=== PATIENT | female | born 1990 | race Two or more races ===

== ENCOUNTER 2018-05-30 15:36 | Inpatient (IN) | payer OTHER ==
[~2018-05-30] VITALS: Ht 154.9 cm; Wt 83.7 kg
--- NOTE | 2018-05-30 17:03 | NUR ---
C/O ABD PAIN, N/V x 5 DAYS. STATES PAIN IS SIMILAR TO WHEN SHE HAD GALLSTONES X 6 MOS AGO. PT IS AOX4, AMB, VSS, RR EVEN AND UNLABORED ON RA. SKIN INTACT, NO ACUTE DISTRESS NOTED. FRIEND AT BEDSIDE. READY FOR EVAL.
[2018-05-30 17:28] LABS: BASOPHILS # (AUTO) 0.1 /CMM (0.0-0.2); BASOPHILS % (AUTO) 0.6 % (0.0-2.0); EOSINOPHILS % (AUTO) 1.1 % (0.0-6.0); HEMATOCRIT 40 % (33-45); HEMOGLOBIN 13.8 g/dL (11.5-14.8); LYMPHOCYTES # (AUTO) 1.5 /CMM (0.8-4.8); LYMPHOCYTES % (AUTO) 15.6 % (20.0-44.0); MEAN CORPUSCULAR HGB CONC 35 g/dl (31.0-36.0); MEAN CORPUSCULAR VOLUME 88 fL (82-100); MONOCYTES # (AUTO) 0.5 /CMM (0.1-1.30); MONOCYTES % (AUTO) 5.6 % (2.0-12.0); NEUTROPHILS # (AUTO) 7.4 /CMM (1.8-8.9); NEUTROPHILS % (AUTO) 77.1 % (43.0-81.0); PLATELET COUNT (AUTO) 203 /CMM (150-450); RED BLOOD CELL COUNT(AUTO) 4.53 MIL/uL (4.0-5.2); WHITE BLOOD COUNT (AUTO) 9.6 K/uL (4.3-11.0)
[2018-05-30] MEDS ORDERED: IV NS 0.9% 1,000 ML BAG IV ONE (17:30)
[2018-05-30] MEDS ORDERED: ONDANSETRON HCL/PF 4 MG/2 ML VIAL IVP ONE (17:30)
[2018-05-30] MEDS ORDERED: MORPHINE SULFATE INJ 2 MG/ML DISP.SYRIN IV ONE (17:30)
[2018-05-30 17:32] LABS: APPEARANCE,URINE Clear (CLEAR); BILIRUBIN,URINE SMALL (NEGATIVE); BLOOD, URINE Negative Ery/uL (NEGATIVE); COLOR,URINE Yellow (YELLOW); KETONES,URINE Trace (NEGATIVE); LEUKOCYTE ESTERASE ,URINE Negative (NEGATIVE); NITRITE, URINE Negative (NEGATIVE); PH,URINE 5.5 (5.0-8.0); PROTEIN,URINE Negative (NEGATIVE); UGLUCOSE Negative (NEGATIVE); UROBILINOGEN,URINE 0.2 EU/dL (0.2)
[2018-05-30 17:33] LABS: CALCIUM, SERUM 9.1 mg/dL (8.5-10.1); CREATININE 0.8 mg/dL (0.6-1.3); POTASSIUM 3.8 mmol/L (3.5-5.1)
[2018-05-30 17:39] LABS: ALBUMIN 4.2 g/dL (3.4-5.0); BILIRUBIN,DIRECT 0.4 mg/dL (0.0-0.2); TOTAL PROTEIN, SERUM 7.3 g/dL (6.4-8.2)
[2018-05-30] MEDS ORDERED: MORPHINE SULFATE INJ 4 MG/ML DISP.SYRIN ONE (17:43)
[2018-05-30] MEDS ORDERED: ONDANSETRON HCL/PF 4 MG/2 ML VIAL ONE (17:43)
[2018-05-30 17:58] LABS: BACTERIA,URINE Moderate /HPF (None Seen); MUCUS,URINE Many /LPF (None Seen); RBC,URINE 0-2 /HPF (0-2); SQUAMOUS EPITHELIAL CELL,UR Moderate /HPF (None Seen); WBC,URINE 0-2 /HPF (0-3)
--- NOTE | 2018-05-30 18:20 | NUR ---
DR DE WAS CALLED AND IS SPEAKING TO DR. HAY
--- NOTE | 2018-05-30 18:21 | NUR ---
CALLING DR KIMBALL FOR GI CONSULT
--- NOTE | 2018-05-30 18:45 | NUR ---
TEXTED FOR [facility] APPROVAL.
--- NOTE | 2018-05-30 18:46 | NUR ---
[facility] APPROVED
--- NOTE | 2018-05-30 18:52 | NUR ---
FOR MRCP KEEP THE PATIENT NPO. TRACTOR DRIVER WILL BE AT SO AFTER 8.30 PM.SPOKE TO KIM.
--- NOTE | 2018-05-30 19:03 | NUR ---
Patient is resting comfortably in bed with eyes closed. Easily aroused. VSS. FAMILY AT BEDSIDE. WILL CONT TO MONITOR.
--- NOTE | 2018-05-30 20:18 | NUR ---
REPORT GIVEN TO ROBERTA FOR 315-2 MS FOR NELLIE
[2018-05-30] MEDS ORDERED: CEFTRIAXONE 1GM BAG (ER ONLY) 0 ML IV ONE (20:21)
[2018-05-30] MEDS ORDERED: ZOLPIDEM TARTRATE 5 MG TABLET PO PRN (20:30)
[2018-05-30] MEDS ORDERED: MORPHINE SULFATE INJ 2 MG/ML DISP.SYRIN IV PRN (20:30)
[2018-05-30] MEDS ORDERED: MAG HYDROX/AL HYDROX/SIMETH 30 ML UDC PO PRN (20:30)
[2018-05-30] MEDS ORDERED: ACETAMINOPHEN 325 MG TABLET PO PRN (20:30)
[2018-05-30] MEDS ORDERED: HYDROCODONE/APAP 5/325MG 1 EACH TABLET PO PRN (20:30)
[2018-05-30] MEDS ORDERED: MAGNESIUM HYDROXIDE 30 ML UDC PO PRN (20:30)
[2018-05-30] MEDS ORDERED: Z GUARD REMEDY 2 OZ OINT TP PRN (20:30)
--- NOTE | 2018-05-30 20:45 | NUR ---
PT TRANSFERRED TO FLOOR VIA WHEELCHAIR
--- NOTE | 2018-05-30 20:53 | NUR ---
MS/RN RECEIVE PATIENT FROM E.. BY WHEELCHAIR, PATIENT IS AWAKE, ALERT, ORIENTED, COMFORTABLE, NO C/O PAIN AT THIS TIME, NO SIGNS OF DISTRESS NOTED, ADMISSION DONE PER PROTOCOL, PER PATIENT SHE HAS NO SKIN PROBLEM, REFUSED SKIN ASSESSMENT, PLAN OF CARE DISCUSSED, VERBALIZED UNDERSTANDING AND AGREEMENT, WILL MONITOR.
--- NOTE | 2018-05-30 20:56 | NUR ---
MS/RN CALLED RADIOLOGY RE: HIDA SCAN STAT ORDER, SPOKE TO MARIA VICTORIA, PER MARIA VICTORIA IT WILL BE DONE IN THE MORNING.
[2018-05-30] MEDS: IV NS 0.9% 1,000 ML IV PRN (21:25)
--- NOTE | 2018-05-30 23:52 | NUR ---
MS/RN PATIENT STILL AWAKE, CONSENT FOR HIDA SCAN WAS SIGNED.
--- NOTE | 2018-05-31 | NUR ---
MS/RN NPO STATUS STARTED FOR THE HIDA SCAN IN A.M., PATIENT WAS AWARE.
--- NOTE | 2018-05-31 01:08 | NUR ---
MS/RN DR. HUNT WAS AT BEDSIDE TALKED TO THE PATIENT.
--- NOTE | 2018-05-31 06:19 | NUR ---
MS/RN PATIENT IS STILL SLEEPING, APPEAR COMFORTABLE, NO SIGNS OF DISTRESS NOTED, CALL LIGHT IN REACH. ALL NEEDS ATTENDED AT THIS TIME, WILL CONTINUE TO MONITOR.
--- NOTE | 2018-05-31 07:00 | NUR ---
RN OPENING NOTES PT ALERT AND RESTING IN BED. NO APPARENT S/S OF PAIN, DISTRESS OR SOB AT THIS TIME. PT HAS A LEFT AC #20 INTACT AND RUNNING NS @75ML/HR. PT WILL HAVE HIDA SCAN TODAY, CONSENT IN CHART. SAFETY PRECAUTIONS IN PLACE, BED IN LOWEST LOCKED POSITION, X2 SIDE RAILS UP AND CALL LIGHT WITHIN REACH. WILL CONTINUE TO MONITOR.
[2018-05-31 07:48] LABS: BASOPHILS % (AUTO) 0.8 % (0.0-2.0); EOSINOPHILS % (AUTO) 3.3 % (0.0-6.0); HEMATOCRIT 37 % (33-45); HEMOGLOBIN 13.1 g/dL (11.5-14.8); LYMPHOCYTES # (AUTO) 1.8 /CMM (0.8-4.8); LYMPHOCYTES % (AUTO) 35.8 % (20.0-44.0); MEAN CORPUSCULAR HGB CONC 35 g/dl (31.0-36.0); MEAN CORPUSCULAR VOLUME 87 fL (82-100); MONOCYTES # (AUTO) 0.3 /CMM (0.1-1.30); MONOCYTES % (AUTO) 5.8 % (2.0-12.0); NEUTROPHILS # (AUTO) 2.7 /CMM (1.8-8.9); NEUTROPHILS % (AUTO) 54.3 % (43.0-81.0); PLATELET COUNT (AUTO) 186 /CMM (150-450); RED BLOOD CELL COUNT(AUTO) 4.22 MIL/uL (4.0-5.2)
[2018-05-31 07:51] LABS: ALBUMIN 3.5 g/dL (3.4-5.0); BILIRUBIN,DIRECT 0.1 mg/dL (0.0-0.2); BILIRUBIN,TOTAL 0.7 mg/dL (0.2-1.0); CALCIUM, SERUM 8.3 mg/dL (8.5-10.1); CREATININE 0.7 mg/dL (0.6-1.3); MAGNESIUM 1.6 mg/dL (1.8-2.4); PHOSPHORUS 3.1 mg/dL (2.5-4.9); TOTAL PROTEIN, SERUM 6.2 g/dL (6.4-8.2)
[2018-05-31 07:53] LABS: THYROID STIMULATING HORMONE 0.268 uIU/mL (0.358-3.74)
[2018-05-31 08:00] VITALS: BP 101/59
[2018-05-31] MEDS: PANTOPRAZOLE 40 MG VIAL IV SCH (08:54)
--- NOTE | 2018-05-31 08:55 | NUR ---
RN NOTES PT NPO FOR HIDA SCAN.
[2018-05-31] MEDS ORDERED: ONDA4TAB11 PO (09:51)
[2018-05-31] MEDS ORDERED: TRAM50TA2 PO (09:51)
--- NOTE | 2018-05-31 10:00 | NUR ---
RN NOTES PT TAKEN OFF UNIT VIA WHEELCHAIR TO HIDA SCAN AND MRI OF ABD.
[2018-05-31] MEDS: Magnesium 1GM/D5W 100ML PREMIX 100 ML IV SCH ×2 (12:26→13:32)
[2018-05-31] MEDS: IV NS 0.9% 1,000 ML IV PRN (12:26)
--- NOTE | 2018-05-31 12:30 | NUR ---
RN NOTES PT RETURNED TO THE UNIT FAMILY AT BEDSIDE.
[2018-05-31] MEDS: CEFTRIAXONE 1 G in IV D5W 50 ML IV SCH (15:50)
[2018-05-31 16:00] VITALS: BP 107/66
--- NOTE | 2018-05-31 18:38 | NUR ---
RN CLOSING NOTES PT ALERT AND RESTING IN BED. NO APPARENT S/S OF PAIN, DISTRESS OR SOB DURING SHIFT. PT HAS A LEFT AC #20 INTACT AND RUNNING NS @75ML/HR. ALL PATIENT NEEDS MET DURING SHIFT. SAFETY PRECAUTIONS IN PLACE, BED IN LOWEST LOCKED POSITION, X2 SIDE RAILS UP AND CALL LIGHT WITHIN REACH. WILL ENDORSE TO ZIG ZAG SPRING MACHINE OPERATOR NURSE FOR CONTINUITY OF CARE.
--- NOTE | 2018-05-31 19:30 | NUR ---
MS RN INITIAL NOTES Patient in bed, awake. Stable oxygen saturation on RA. On clear liquids diet, reports discomfort in her abdomen, denies nausea no vomiting. Safety measures explained, verbalized understanding. Will cont to monitor.
[2018-05-31 20:00] VITALS: BP 100/65
[2018-05-31 20:28] VITALS: BP 100/65
--- NOTE | 2018-06-01 06:42 | NUR ---
MS RN CLOSING NOTES Patient in bed, stable oxygen saturation on RA. On clear liquids diet, no c/o nausea no vomiting. Pain in right lateral to back controlled with PRN Morphine. IVF infusing, maintained at 75ml/hr, IV antibiotic as scheduled. Per GI no endoscopic intervention indicated at this time. Awaits surgical consult for cholecystectomy. Slept well, no acute events overnight. Maintained safety, will endorse to oncoming RN.
[2018-06-01 08:00] VITALS: BP 101/60
[2018-06-01 08:06] LABS: BASOPHILS # (AUTO) 0.1 /CMM (0.0-0.2); BASOPHILS % (AUTO) 1.1 % (0.0-2.0); EOSINOPHILS % (AUTO) 3.7 % (0.0-6.0); HEMATOCRIT 39 % (33-45); HEMOGLOBIN 13.4 g/dL (11.5-14.8); LYMPHOCYTES # (AUTO) 1.7 /CMM (0.8-4.8); LYMPHOCYTES % (AUTO) 33.9 % (20.0-44.0); MEAN CORPUSCULAR HGB CONC 35 g/dl (31.0-36.0); MEAN CORPUSCULAR VOLUME 88 fL (82-100); MONOCYTES # (AUTO) 0.3 /CMM (0.1-1.30); MONOCYTES % (AUTO) 6.4 % (2.0-12.0); NEUTROPHILS # (AUTO) 2.7 /CMM (1.8-8.9); NEUTROPHILS % (AUTO) 54.9 % (43.0-81.0); PLATELET COUNT (AUTO) 193 /CMM (150-450); RED BLOOD CELL COUNT(AUTO) 4.38 MIL/uL (4.0-5.2); WHITE BLOOD COUNT (AUTO) 4.9 K/uL (4.3-11.0)
[2018-06-01 08:17] LABS: CALCIUM, SERUM 8.5 mg/dL (8.5-10.1); CREATININE 0.8 mg/dL (0.6-1.3); MAGNESIUM 1.9 mg/dL (1.8-2.4); POTASSIUM 3.9 mmol/L (3.5-5.1)
[2018-06-01 08:31] LABS: ALBUMIN 3.6 g/dL (3.4-5.0); BILIRUBIN,DIRECT 0.1 mg/dL (0.0-0.2); BILIRUBIN,TOTAL 0.8 mg/dL (0.2-1.0); TOTAL PROTEIN, SERUM 6.4 g/dL (6.4-8.2)
[2018-06-01] MEDS: PANTOPRAZOLE 40 MG VIAL IV SCH (09:26)
[2018-06-01] MEDS: PANTOPRAZOLE 40 MG/PACK PACK PO SCH (10:12)
[2018-06-01] MEDS: IV NS 0.9% 1,000 ML IV PRN ×2 (11:05→21:42)
--- NOTE | 2018-06-01 11:30 | NUR ---
RN OPENING NOTES PT RECEIVED RESTING COMFORTABLY IN BED, AOX4. PT DENIES PAIN OR DISCOMFORT AT THIS TIME. BREATHING EVEN AND UNLABORED ON ROOM AIR, SPO2 WNL. PT HAS A LEFT AC #20 INTACT AND RUNNING NS @75ML/HR. SAFETY PRECAUTIONS IN PLACE, BED IN LOWEST LOCKED POSITION, X2 SIDE RAILS UP AND CALL LIGHT WITHIN REACH. WILL CONTINUE TO MONITOR.
[2018-06-01] MEDS: CEFTRIAXONE 1 G in IV D5W 50 ML IV SCH (14:32)
[2018-06-01 16:09] VITALS: BP 97/56
--- NOTE | 2018-06-01 19:31 | NUR ---
RN CLOSING NOTES PT REMAINS AWAKE AND RESTING COMFORTABLY IN BED, AOX4. PT REPORTS ADEQUATE PAIN MANAGEMENT AT THIS TIME. BREATHING EVEN AND UNLABORED ON ROOM AIR, SPO2 WNL. PT HAS A RIGHT FA #20 INTACT AND SALINE FLUSH PATENT. PT REFUSES IVF-MD AWARE. SAFETY PRECAUTIONS IN PLACE, BED IN LOWEST LOCKED POSITION, X2 SIDE RAILS UP AND CALL LIGHT WITHIN REACH. WILL ENDORSE TO NIGHT NURSE AT BEDSIDE FOR NELLIE. Addendum: 06/01/18 at 1933 by MARILYN IVERSON RN WRONG PT
--- NOTE | 2018-06-01 19:34 | NUR ---
RN CLOSING NOTES PT ALERT AND RESTING IN BED. NO APPARENT S/S OF PAIN, DISTRESS OR SOB DURING SHIFT. PT HAS A LEFT AC #20 INTACT AND RUNNING NS @125ML/HR. ALL PATIENT NEEDS MET DURING SHIFT. PT DIET TO UNCLEAR ENDORSE TO NIGHT RN TO FOLLOW UP WITH STATEMENT CLERKS MANAGER PS TO CLARIFY INTERVENTIONS AND DIET. SAFETY PRECAUTIONS IN PLACE, BED IN LOWEST LOCKED POSITION, X2 SIDE RAILS UP AND CALL LIGHT WITHIN REACH. WILL ENDORSE TO COMPOUNDER HELPER NURSE FOR CONTINUITY OF CARE.
--- NOTE | 2018-06-01 19:45 | NUR ---
MS/RN NOTES PER YASMANI PADGETT NP: 1. PLEASE START LOW FAT LOW CHOLESTEROL DIET 2. ADD LIPASE TO AM LABS NO SURGERY TOMORROW
[2018-06-01 20:00] VITALS: BP 121/67
--- NOTE | 2018-06-01 20:20 | NUR ---
RECEIVED PATIENT FROM GREER PEDROZA. PATIENT IN STABLE CONDITION; DENIES PAIN AT THIS TIME. WILL CONTINUE TO MONITOR.
--- NOTE | 2018-06-01 21:21 | NUR ---
REPORT GIVEN TO FREDERICK PEDROZA FOR CONTINUITY OF CARE
--- NOTE | 2018-06-01 21:22 | NUR ---
RN INITIAL NOTES: RECEIVED REPORT FROM RVI RN. PT IN BED, AWAKE, A/O X4 ON RA DENIES ANY PAIN OR DISCOMFORT AT THIS TIME, IV ACCESS PATENT AND FLUSHING WELL, INFUSING WITH NS AT 125ML/HR. PT REFUSED SCD STATED SHE'S BEEN WALKING AROUND, EDUCATION PROVIDED TO THE PT. DISCUSSED PLAN OF CARE FOR TONIGHT. SAFETY PRECAUTIONS FOR FALL INITIATED, CALL LIGHT IN REACH, WILL CONTINUE MONITORING PT.
[2018-06-01 22:00] VITALS: BP 121/67
--- NOTE | 2018-06-02 06:30 | NUR ---
RN CLOSING NOTES: PT DENIES ANY PAIN OR DISCOMFORT THROUGHOUT THE SHIFT, TOLERATING CLEAR LIQUID DIET, NO REPORTS/EPISODE OF N/V NOTED. IV ACCESS REMAINS PATENT AND FLUSHING WELL, INFUSING WITH NS AT 125ML/HR. VS REMAINS STABLE, NEEDS ATTENDED. SAFETY PRECAUTIONS FOR FALL REMAINS ENGAGED, CALL LIGHT IN REACH, WILL ENDORSE TO DAY RN FOR CONTINUITY OF CARE.
[2018-06-02 07:10] LABS: BASOPHILS % (AUTO) 0.7 % (0.0-2.0); EOSINOPHILS % (AUTO) 3.4 % (0.0-6.0); HEMATOCRIT 40 % (33-45); HEMOGLOBIN 14.2 g/dL (11.5-14.8); LYMPHOCYTES % (AUTO) 31.3 % (20.0-44.0); MEAN CORPUSCULAR HGB CONC 36 g/dl (31.0-36.0); MEAN CORPUSCULAR VOLUME 87 fL (82-100); MONOCYTES # (AUTO) 0.4 /CMM (0.1-1.30); NEUTROPHILS # (AUTO) 3.8 /CMM (1.8-8.9); NEUTROPHILS % (AUTO) 58.6 % (43.0-81.0); PLATELET COUNT (AUTO) 204 /CMM (150-450); RED BLOOD CELL COUNT(AUTO) 4.61 MIL/uL (4.0-5.2); WHITE BLOOD COUNT (AUTO) 6.4 K/uL (4.3-11.0)
--- NOTE | 2018-06-02 07:19 | NUR ---
INITIAL RECEIVED REPORT FROM RVI RN. PT IN BED, AWAKE, A/O X4 ON RA DENIES ANY PAIN OR DISCOMFORT AT THIS TIME, IV ACCESS PATENT AND FLUSHING WELL, INFUSING WITH NS AT 125ML/HR 20G LAC. PT REFUSED SCD STATED SHE'S BEEN WALKING AROUND, EDUCATION PROVIDED TO THE PT. DISCUSSED PLAN OF CARE FOR TONIGHT. SAFETY PRECAUTIONS FOR FALL INITIATED, CALL LIGHT IN REACH, WILL CONTINUE MONITORING PT.
[2018-06-02 07:25] LABS: ALBUMIN 3.8 g/dL (3.4-5.0); BILIRUBIN,DIRECT 0.1 mg/dL (0.0-0.2); BILIRUBIN,TOTAL 0.6 mg/dL (0.2-1.0); CALCIUM, SERUM 8.6 mg/dL (8.5-10.1); CREATININE 0.8 mg/dL (0.6-1.3); POTASSIUM 3.7 mmol/L (3.5-5.1); TOTAL PROTEIN, SERUM 7.1 g/dL (6.4-8.2)
[2018-06-02 08:00] VITALS: BP 101/60
[2018-06-02] MEDS: PANTOPRAZOLE 40 MG/PACK PACK PO SCH (08:58)
[2018-06-02] MEDS: CEFTRIAXONE 1 G in IV D5W 50 ML IV SCH (15:41)
[2018-06-02] MEDS: IV NS 0.9% 1,000 ML IV PRN (15:46)
[2018-06-02 15:59] VITALS: BP 101/60
[2018-06-02 16:00] VITALS: BP 106/72
[2018-06-02 18:00] VITALS: BP 166/76
--- NOTE | 2018-06-02 18:24 | NUR ---
CLOSING PT DENIES ANY PAIN OR DISCOMFORT THROUGHOUT THE SHIFT, DIET CHANGE TO NPO STATUS. , NO REPORTS/EPISODE OF N/V NOTED. IV ACCESS REMAINS PATENT AND FLUSHING WELL, INFUSING WITH NS AT 200ML/HR. VS REMAINS STABLE, NEEDS ATTENDED. SAFETY PRECAUTIONS FOR FALL REMAINS ENGAGED, CALL LIGHT IN REACH, WILL ENDORSE TO DAY RN FOR CONTINUITY OF CARE.
--- NOTE | 2018-06-02 19:15 | NUR ---
RN INITIAL NOTES: RECEIVED REPORT FROM FEDERICO PEDROZA, PT IN BED, AWAKE, DENIES ANY PAIN OR DISCOMFORT AT THIS TIME, IV ACCESS PATENT AND FLUSHING WELL, INFUSING WITH NS AT 200ML/HR. PT ON NPO, FOR CT ABDOMEN WITH CONTRAST, CONTACTED RADIOLOGY PER RAD THEY WILL JOCKEY VALET PT IN A FEW MINUTES. CONSENT SECURED BY WILL RN, SIGNED BY PATIENT. SAFETY PRECAUTIONS FOR FALL INITIATED, CALL LIGHT IN REACH WILL CONTINUE MONITORING PT.
[2018-06-02] MEDS ORDERED: IV NS 0.9% 250 ML IV ONE (19:44)
[2018-06-02] MEDS ORDERED: IOHEXOL-350 100 ML VIAL IV ONE (19:44)
[2018-06-02] MEDS ORDERED: CT SWABBABLE VALVE TRANS SET 1 EA INFUS.SET MC ONE (19:44)
--- NOTE | 2018-06-02 19:45 | NUR ---
RN NOTES: CARCASS SPLITTER FOR CT ABDOMEN WITH CONTRAST
[2018-06-02 20:00] VITALS: BP 126/71
--- NOTE | 2018-06-02 20:15 | NUR ---
RN NOTES: PT BACK FROM CT
[2018-06-03] MEDS: IV NS 0.9% 1,000 ML IV PRN ×4 (00:58→23:54)
--- NOTE | 2018-06-03 06:55 | NUR ---
RN CLOSING NOTES: PT SLEEPING, APPEARS CALM AND COMFORTABLE, NO FACIAL GRIMACE NOTED, IV ACCESS REMAINS PATENT AND FLUSHING WELL, INFUSING WITH NS AT 200ML/HR. STILL WAITING FOR CT ABDOMEN RESULT. NO FURTHER COMPLAINT, TOLERATED CLEAR LIQUID DIET. VS REMAINS STABLE, NEEDS ATTENDED. SAFETY PRECAUTIONS FOR FALL REMAINS ENGAGED, CALL LIGHT IN REACH, WILL ENDORSE TO DAY RN FOR CONTINUITY OF CARE.
[2018-06-03 07:33] LABS: BASOPHILS % (AUTO) 0.8 % (0.0-2.0); EOSINOPHILS % (AUTO) 2.2 % (0.0-6.0); HEMATOCRIT 38 % (33-45); HEMOGLOBIN 13.6 g/dL (11.5-14.8); LYMPHOCYTES # (AUTO) 1.9 /CMM (0.8-4.8); LYMPHOCYTES % (AUTO) 32.1 % (20.0-44.0); MEAN CORPUSCULAR HGB CONC 35 g/dl (31.0-36.0); MEAN CORPUSCULAR VOLUME 87 fL (82-100); MONOCYTES # (AUTO) 0.4 /CMM (0.1-1.30); MONOCYTES % (AUTO) 6.8 % (2.0-12.0); NEUTROPHILS # (AUTO) 3.5 /CMM (1.8-8.9); NEUTROPHILS % (AUTO) 58.1 % (43.0-81.0); PLATELET COUNT (AUTO) 189 /CMM (150-450); RED BLOOD CELL COUNT(AUTO) 4.41 MIL/uL (4.0-5.2)
[2018-06-03 07:47] LABS: ALBUMIN 3.6 g/dL (3.4-5.0); BILIRUBIN,DIRECT 0.1 mg/dL (0.0-0.2); BILIRUBIN,TOTAL 0.8 mg/dL (0.2-1.0); CALCIUM, SERUM 8.2 mg/dL (8.5-10.1); CREATININE 0.8 mg/dL (0.6-1.3); POTASSIUM 3.5 mmol/L (3.5-5.1); TOTAL PROTEIN, SERUM 6.4 g/dL (6.4-8.2)
[2018-06-03 08:00] VITALS: BP 107/63
--- NOTE | 2018-06-03 08:07 | NUR ---
M/S RN OPENING NOTES PATIENT ON BED ASLEEP COMFORTABLY BUT EASILY AROUSABLE, A/O X 4 AND ABLE TO MAKE NEEDS KNOWN. RESPIRATION EVEN AND NON LABORED WITH NO SOB NOTED. ABDOMEN SOFT AND NON DISTENDED WITH ACTIVE BOWEL SOUNDS. SKIN WARM TO TOUCH, INTACT AND DRY. IV SITE ON LEFT ANTECUBITAL WITH NO S/SX OF INFILTRATION. DENIES PAIN AND DISCOMFORT. ALL CONCERNS ADDRESSED, CALL LIGHT PLACED WITHIN REACH TO ENSURE SAFETY. WILL CONTINUE TO EVALUATE CARE.
[2018-06-03] MEDS: PANTOPRAZOLE 40 MG/PACK PACK PO SCH (09:06)
[2018-06-03] MEDS: CEFTRIAXONE 1 G in IV D5W 50 ML IV SCH (15:15)
[2018-06-03 16:00] VITALS: BP 120/71
--- NOTE | 2018-06-03 18:41 | NUR ---
M/S RN CLOSING NOTES PATIENT IS A/O X 4 AND ABLE TO MAKE NEEDS KNOWN. RESPIRATION EVEN AND NON LABORED WITH NO ACUTE RESPIRATORY DISTRESS. SKIN WARM TO TOUCH, INTACT AND DRY. ABDOMEN SOFT AND NON DISTENDED WITH ACTIVE BOWEL SOUNDS, CONTINENT IN BOWEL AND BLADDER WITH BRP. IV SITE PATENT WITH FLUSHING AT LEFT FOREARM GAUGE 20 WITH NS RUNNING AT 200 ML/HR. ALL CONCERNS ATTENDED. CALL LIGHT PLACED WITHIN REACH TO ENSURE SAFETY. ENDORSED PATIENT CONDITION ON NEXT SHIFT.
[2018-06-03 20:00] VITALS: BP 108/57
--- NOTE | 2018-06-04 06:43 | NUR ---
Lying in bed I.V N.S 0.9% cont infusing at 200 cc hr without difficulty. A/o x4 Denies of any pain still no bm after administering M.O.M. at hs. Siderails up call light within reach. Getting up on her own to bathroom x6 to void. Remains stable.
--- NOTE | 2018-06-04 07:08 | NUR ---
MS RN NOTES PATIENT IN BED ALERT ORIENTED X 3. NO ACUTE DISTRESS NOTED. BREATHING UNLABORED. NO SOB NOTED. DENIED ANY PAIN AT THIS TIME. IV ACCESS PATENT AND INTACT, NO REDNESS OR SWELLING NOTED. SAFETY MEASURES IN PLACE. CALL LIGHT WITHIN REACH. WILL CONTINUE TO MONITOR ACCORDINGLY.
[2018-06-04 08:00] VITALS: BP 115/55
[2018-06-04] MEDS: PANTOPRAZOLE 40 MG/PACK PACK PO SCH (08:14)
[2018-06-04] MEDS: IV NS 0.9% 1,000 ML IV PRN ×2 (11:57→21:30)
[2018-06-04 12:41] LABS: BASOPHILS # (AUTO) 0.1 /CMM (0.0-0.2); BASOPHILS % (AUTO) 1.2 % (0.0-2.0); EOSINOPHILS % (AUTO) 1.7 % (0.0-6.0); HEMATOCRIT 41 % (33-45); HEMOGLOBIN 14.3 g/dL (11.5-14.8); LYMPHOCYTES # (AUTO) 1.5 /CMM (0.8-4.8); LYMPHOCYTES % (AUTO) 32.2 % (20.0-44.0); MEAN CORPUSCULAR HGB CONC 35 g/dl (31.0-36.0); MEAN CORPUSCULAR VOLUME 88 fL (82-100); MONOCYTES # (AUTO) 0.3 /CMM (0.1-1.30); MONOCYTES % (AUTO) 5.7 % (2.0-12.0); NEUTROPHILS # (AUTO) 2.7 /CMM (1.8-8.9); NEUTROPHILS % (AUTO) 59.2 % (43.0-81.0); PLATELET COUNT (AUTO) 211 /CMM (150-450); RED BLOOD CELL COUNT(AUTO) 4.66 MIL/uL (4.0-5.2); WHITE BLOOD COUNT (AUTO) 4.6 K/uL (4.3-11.0)
[2018-06-04 12:44] LABS: CALCIUM, SERUM 8.8 mg/dL (8.5-10.1); CREATININE 0.8 mg/dL (0.6-1.3); POTASSIUM 3.7 mmol/L (3.5-5.1)
[2018-06-04] MEDS: CEFTRIAXONE 1 G in IV D5W 50 ML IV SCH (14:58)
[2018-06-04 16:00] VITALS: BP 116/73
--- NOTE | 2018-06-04 19:30 | NUR ---
RN INITIAL NOTES: RECEIVED REPORT FROM SHAY PEDROZA, PT IN BED, AWAKE, STATED PAIN IS 3/10 BUT TOLERABLE, OFFERED PAIN MEDICATION BUT PT REFUSED, STATED SHE DOESN'T NEED IT FOR NOW, , IV ACCESS PATENT AND FLUSHING WELL, INFUSING WITH NS AT 75 ML/HR. SAFETY PRECAUTIONS FOR FALL INITIATED, CALL LIGHT IN REACH WILL CONTINUE MONITORING PT.
[2018-06-04 20:00] VITALS: BP 109/62
--- NOTE | 2018-06-04 21:31 | NUR ---
RN NOTES: IVF RATE INCREASED TO 150 ML/HR PER MD ORDER
[2018-06-05] MEDS: IV NS 0.9% 1,000 ML IV PRN ×2 (03:46→11:03)
[2018-06-05 06:29] LABS: CALCIUM, SERUM 8.4 mg/dL (8.5-10.1); CREATININE 0.7 mg/dL (0.6-1.3); POTASSIUM 3.5 mmol/L (3.5-5.1)
--- NOTE | 2018-06-05 06:29 | NUR ---
RN CLOSING NOTES: PT SLEEPING, NO FACIAL GRIMACE NOTED, IV ACCESS REMAINS PATENT AND FLUSHING WELL, INFUSING WITH NS AT 150ML/HR.NO FURTHER COMPLAINTS. VS REMAINS STABLE, NEEDS ATTENDED. SAFETY PRECAUTIONS FOR FALL REMAINS ENGAGED, CALL LIGHT IN REACH, WILL ENDORSE TO DAY RN FOR CONTINUITY OF CARE.
[2018-06-05 06:34] LABS: BASOPHILS # (AUTO) 0.1 /CMM (0.0-0.2); EOSINOPHILS % (AUTO) 2.5 % (0.0-6.0); HEMATOCRIT 39 % (33-45); LYMPHOCYTES # (AUTO) 1.6 /CMM (0.8-4.8); LYMPHOCYTES % (AUTO) 29.8 % (20.0-44.0); MEAN CORPUSCULAR HGB CONC 36 g/dl (31.0-36.0); MEAN CORPUSCULAR VOLUME 87 fL (82-100); MONOCYTES # (AUTO) 0.4 /CMM (0.1-1.30); MONOCYTES % (AUTO) 6.9 % (2.0-12.0); NEUTROPHILS # (AUTO) 3.2 /CMM (1.8-8.9); NEUTROPHILS % (AUTO) 59.8 % (43.0-81.0); PLATELET COUNT (AUTO) 204 /CMM (150-450); RED BLOOD CELL COUNT(AUTO) 4.49 MIL/uL (4.0-5.2); WHITE BLOOD COUNT (AUTO) 5.4 K/uL (4.3-11.0)
[2018-06-05 08:00] VITALS: BP 109/55
--- NOTE | 2018-06-05 08:03 | NUR ---
M/S RN OPENING NOTES RECEIVED PATIENT ON BED, A/O X 4 AND ABLE TO MAKE NEEDS KNOWN. RESPIRATION EVEN AND UNLABORED WITH NO ACUTE RESPIRATORY DISTRESS. ABDOMEN SOFT AND NON DISTENDED WITH ACTIVE BOWEL SOUNDS. DENIES PAIN AND DISCOMFORT. SKIN WARM TO TOUCH, INTACT AND DRY. IV ON LEFT AC WITH NS RUNNING AT 150 ML/HOUR. ALL CONCERNS ATTENDED, ALL LIGHT PLACED WITHIN REACH FOR SAFETY. WILL CONTINUE TO EVALUATE CARE.
[2018-06-05] MEDS: PANTOPRAZOLE 40 MG/PACK PACK PO SCH (08:46)
[2018-06-05] MEDS ORDERED: AMOX-430 PO (11:29)
[2018-06-05] MEDS: CEFTRIAXONE 1 G in IV D5W 50 ML IV SCH (15:26)
--- NOTE | 2018-06-05 16:10 | NUR ---
M/S ROTATING EQUIPMENT SPECIALIST NOTES PATIENT DISCHARGE ACCOMPANIED BY IVELISSE, FRIEND, IN STABLE CONDITION. PATIENT A/O X 4 AND ABLE TO MAKE NEEDS KNOWN. RESPIRATION EVEN AND UNLABORED WITH NO ACUTE RESPIRATORY DISTRESS. ABDOMEN SOFT AND NON DISTENDED WITH ACTIVE BOWEL SOUNDS. SKIN WARM TO TOUCH INTACT AND DRY WITH NO NEW OPEN SKIN BREAKDOWN. DENIES PAIN AND DISCOMFORT. IV SITE REMOVED WITH NO S/SX OF INFECTION. DISCHARGE EXIT CARE DONE WITH DOCUMENTATIONS ON HAND FOR FURTHER APPOINTMENTS. ALL CONCERNS ADDRESSED. PATIENT LEFT SAFE IN A PRIVATE CARE. BP 120/80M VT 75, RR 20, T 96.9, O2 SAT AT 99% RA.
== END 2018-06-05 16:14 | disposition home or self-care (01) ==
LOC: ER 15:36 → MED 20:35
PROVIDERS: ADMIT Internal Medicine; ATTEND Nurse Practitioner Acute Care
DX: K81.0 Acute cholecystitis (principal); K85.90 Acute pancreatitis without necrosis or infection, unspecified; K76.0 Fatty (change of) liver, not elsewhere classified; E66.01 Morbid (severe) obesity due to excess calories; E83.42 Hypomagnesemia; E66.9 Obesity, unspecified; Z68.34 Body mass index [BMI] 34.0-34.9, adult; R74.0 Nonspecific elevation of levels of transaminase and lactic acid dehydrogenase [LDH]; E78.5 Hyperlipidemia, unspecified
CPT/HCPCS: 36415; 74181-TC; 76705-TC; 78226; 80048-TC; 80076-TC; 81000-TC; 83540-TC; 83690-TC; 83735-TC; 84100-TC; 84439-TC; 84443-TC; 84703-TC; 85025-TC; 87081-TC; 87086-TC; A9537; G0378; J0696; J2270; J2405; J3475; J7030; J7050; J7060; Q9967

== ENCOUNTER 2018-06-15 09:43 | Inpatient (IN) | payer OTHER ==
[~2018-06-15] VITALS: Ht 157.5 cm; Wt 79.4 kg
[~2018-06-15 09:43] MED LIST: AMOX-430 PO; ONDA4TAB11 PO; TRAM50TA2 PO
[2018-06-15 10:35] LABS: APPEARANCE,URINE Cloudy (CLEAR); BILIRUBIN,URINE SMALL (NEGATIVE); BLOOD, URINE Negative Ery/uL (NEGATIVE); KETONES,URINE Trace (NEGATIVE); LEUKOCYTE ESTERASE ,URINE Negative (NEGATIVE); NITRITE, URINE Negative (NEGATIVE); PH,URINE 8.5 (5.0-8.0); PROTEIN,URINE 30 mg/dl (NEGATIVE); UGLUCOSE Negative (NEGATIVE)
[2018-06-15 10:36] LABS: COLOR,URINE Dark Yellow (YELLOW)
[2018-06-15 10:38] LABS: BASOPHILS % (AUTO) 0.5 % (0.0-2.0); HEMATOCRIT 45 % (33-45); HEMOGLOBIN 15.5 g/dL (11.5-14.8); LYMPHOCYTES # (AUTO) 1.2 /CMM (0.8-4.8); LYMPHOCYTES % (AUTO) 15.5 % (20.0-44.0); MEAN CORPUSCULAR HGB CONC 35 g/dl (31.0-36.0); MEAN CORPUSCULAR VOLUME 89 fL (82-100); MONOCYTES # (AUTO) 0.4 /CMM (0.1-1.30); MONOCYTES % (AUTO) 5.4 % (2.0-12.0); NEUTROPHILS # (AUTO) 6.2 /CMM (1.8-8.9); NEUTROPHILS % (AUTO) 77.6 % (43.0-81.0); PLATELET COUNT (AUTO) 255 /CMM (150-450); RED BLOOD CELL COUNT(AUTO) 5.01 MIL/uL (4.0-5.2)
[2018-06-15 10:44] LABS: SQUAMOUS EPITHELIAL CELL,UR Many /HPF (None Seen)
[2018-06-15 10:45] LABS: CALCIUM, SERUM 9.5 mg/dL (8.5-10.1); CREATININE 0.8 mg/dL (0.6-1.3); POTASSIUM 3.6 mmol/L (3.5-5.1)
[2018-06-15 10:45] LABS: MUCUS,URINE Few /LPF (None Seen)
[2018-06-15 10:46] LABS: WBC,URINE 0-2 /HPF (0-3)
[2018-06-15 10:47] LABS: BACTERIA,URINE Moderate /HPF (None Seen); RBC,URINE 0-2 /HPF (0-2)
[2018-06-15 10:51] LABS: ALBUMIN 4.5 g/dL (3.4-5.0); BILIRUBIN,TOTAL 1.2 mg/dL (0.2-1.0); TOTAL PROTEIN, SERUM 8.1 g/dL (6.4-8.2)
--- NOTE | 2018-06-15 11:00 | NUR ---
PT OT ER BED 12 C/O RUQ PAIN THAT STARTED YESTERDAY, STATES HAS HX OF PANCREATITIS. PLACED ON MONITOR. LAB AND URINE COLLECTED.
--- NOTE | 2018-06-15 12:11 | NUR ---
DEL JAIN AT BEDSIDE FOR EVAL.
[2018-06-15] MEDS ORDERED: ONDANSETRON HCL/PF 4 MG/2 ML VIAL ONE (12:16)
[2018-06-15] MEDS ORDERED: MORPHINE SULFATE INJ 4 MG/ML DISP.SYRIN ONE (12:16)
--- NOTE | 2018-06-15 12:23 | NUR ---
IV LINE STARTED, PT IS MEDICATED ORDERED.
[2018-06-15] MEDS ORDERED: IV NS 0.9% 1,000 ML BAG IV ONE (12:30)
[2018-06-15] MEDS ORDERED: ONDANSETRON HCL/PF 4 MG/2 ML VIAL IVP ONE (12:30)
[2018-06-15] MEDS ORDERED: MORPHINE SULFATE INJ 2 MG/ML DISP.SYRIN IV ONE (12:30)
--- NOTE | 2018-06-15 13:10 | NUR ---
U/S TECH AT BEDSIDE FOR GALLBLADDER ULTRASOUND
--- NOTE | 2018-06-15 15:20 | NUR ---
REPORT GIVEN TO STAR PEDROZA FOR NELLIE
--- NOTE | 2018-06-15 15:20 | NUR ---
[facility] PAGED, DR. GRAYSON ON-CALL. AWAITING FOR CALL BACK. PRIMARY NURSE AWARE.
[2018-06-15 15:45] VITALS: BP 110/60
[2018-06-15 16:00] VITALS: BP 110/60
--- NOTE | 2018-06-15 16:00 | NUR ---
M/S RN NOTES PATIENT ADMITTED TODAY FOR RUQ ABDOMINAL PAIN. HISTORY OF PANCREATITIS, GALLSTONES. ALERT AND ORIENTED X 4, DENIES PAIN AT THIS TIME. PATIENT WITH IV SALINE LOCK #20G, PATENT AND INTACT. SKIN WARM AND DRY. BED LOW AND LOCKED, CALL LIGHT WITHIN REACH.
[2018-06-15] MEDS ORDERED: MAG HYDROX/AL HYDROX/SIMETH 30 ML UDC PO PRN (17:00)
[2018-06-15] MEDS ORDERED: ACETAMINOPHEN 325 MG TABLET PO PRN (17:00)
[2018-06-15] MEDS ORDERED: Z GUARD REMEDY 2 OZ OINT TP PRN (17:00)
[2018-06-15] MEDS ORDERED: ZOLPIDEM TARTRATE 5 MG TABLET PO PRN (17:00)
[2018-06-15] MEDS ORDERED: ONDANSETRON HCL/PF 4 MG/2 ML VIAL IVP PRN (17:00)
[2018-06-15] MEDS ORDERED: MAGNESIUM HYDROXIDE 30 ML UDC PO PRN (17:00)
[2018-06-15] MEDS: IV D5W 1,000 ML IV PRN (17:33)
[2018-06-15] MEDS ORDERED: PIPERACILLIN /TAZOBACTAM 3.375 G in IV NS 0.9% 50 ML IV ONE (18:00)
--- NOTE | 2018-06-15 18:07 | NUR ---
MS/RN - End of shift summary Patient in no acute distress, denies abdominal pain at this time, no c/o nausea/vomiting. IVF D5W at 125 ml/hr to maintain hydration, started on Zosyn, currently NPO, pending surgical consult with Dr. Ti Bunn for pancreatitis. Plan of care discussed with patient and in agreement. Will endorse to night nurse for continuity of care.
--- NOTE | 2018-06-15 19:49 | NUR ---
MS FOLDER STITCHER OPERATOR INITIAL NOTES SEEN PT IN BED ON SEMI FOWLERS POSITION WITH SIDE RAILS X2 UP , N/V SUBSIDE AND PT RESTING AT THIS TIME. IVF D5W @125ML/HR INFUSING AT THIS TIME. PT AWARE OF HER SURGERY CONSULT WITH DR ANA RODRIGUEZ. KEPT HER COMFORTABLE AT ALL TIMES. WILL CONTINUE MONITORING. PLACE CALL LIGHT AT REACH.
[2018-06-15 20:00] VITALS: BP 106/58
--- NOTE | 2018-06-16 | NUR ---
MS LANDEN NOTES PT REMAINS SLEEPING WITHOUT ANY DISCOMFORT NOTED. IVF STILL INFUSING. WILL CONTINUE MONITORING. PLACE CALL LIGHT AT REACH.
[2018-06-16] MEDS: PIPERACILLIN /TAZOBACTAM 3.375 G in IV D5W 100 ML IV SCH ×3 (02:10→17:02)
[2018-06-16] MEDS: IV D5W 1,000 ML IV PRN (02:14)
[2018-06-16 06:53] LABS: BASOPHILS % (AUTO) 0.6 % (0.0-2.0); EOSINOPHILS % (AUTO) 2.9 % (0.0-6.0); HEMATOCRIT 39 % (33-45); HEMOGLOBIN 13.6 g/dL (11.5-14.8); LYMPHOCYTES # (AUTO) 1.8 /CMM (0.8-4.8); LYMPHOCYTES % (AUTO) 32.3 % (20.0-44.0); MEAN CORPUSCULAR HGB CONC 35 g/dl (31.0-36.0); MEAN CORPUSCULAR VOLUME 89 fL (82-100); MONOCYTES # (AUTO) 0.3 /CMM (0.1-1.30); MONOCYTES % (AUTO) 5.8 % (2.0-12.0); NEUTROPHILS # (AUTO) 3.3 /CMM (1.8-8.9); NEUTROPHILS % (AUTO) 58.4 % (43.0-81.0); PLATELET COUNT (AUTO) 210 /CMM (150-450); RED BLOOD CELL COUNT(AUTO) 4.37 MIL/uL (4.0-5.2); WHITE BLOOD COUNT (AUTO) 5.6 K/uL (4.3-11.0)
--- NOTE | 2018-06-16 07:25 | NUR ---
MS BOX BLANK MACHINE OPERATOR CLOSING NOTES PT ASLEEP BUT AROUSES TO TOUCH, NO N/V NOTED AND NO SIGNS OF ANY DISCOMFORT. STABLE DEJA THE NIGHT AND SLEPT WELL. IVF D5W AT 125ML/HR STILL INFUSING. KEPT HER WARM AND COMFORTABLE AT ALL TIMES. PLACE CALL LIGHT AT REACH. ENDORSE TO AM NURSE PANTOJA FOR CONTINUITY OF CARE.
--- NOTE | 2018-06-16 07:39 | NUR ---
RN OPENING NOTE PT WAS RECEIVED IN BED AT LOWEST AND LOCKED POSITION WITH SIDE RAILS UP X2, A/O X4, BREATHING EVEN AND UNLABORED ON RA, NO S/S OF ANY PAIN OR DISTRESS NOTED, IV IS PATENT AND INTACT, PT IS CURRENTLY NPO, POSSIBLE MRCP TODAY WO CONTRAST, SAFETY PRECAUTIONS IN PLACE, CALL LIGHT WITHIN REACH, WILL MONITOR ACCORDINGLY.
[2018-06-16 07:47] LABS: ALBUMIN 3.4 g/dL (3.4-5.0); BILIRUBIN,TOTAL 1.1 mg/dL (0.2-1.0); CALCIUM, SERUM 8.2 mg/dL (8.5-10.1); CREATININE 0.8 mg/dL (0.6-1.3); MAGNESIUM 1.8 mg/dL (1.8-2.4); PHOSPHORUS 3.8 mg/dL (2.5-4.9); POTASSIUM 3.8 mmol/L (3.5-5.1); TOTAL PROTEIN, SERUM 6.3 g/dL (6.4-8.2)
[2018-06-16 08:00] VITALS: BP 104/69
[2018-06-16] MEDS: PANTOPRAZOLE 40 MG VIAL IV SCH (08:11)
--- NOTE | 2018-06-16 09:32 | NUR ---
RN NOTE PT TAKEN DOWN FOR MRCP AT THIS TIME
[2018-06-16] MEDS: TRAMADOL HCL 50 MG TABLET PO PRN (10:34)
--- NOTE | 2018-06-16 10:50 | NUR ---
RN NOTE PT BROUGHT BACK UP FROM [facility], WILL MONITOR ACCORDINGLY
[2018-06-16 16:00] VITALS: BP 94/51
--- NOTE | 2018-06-16 18:53 | NUR ---
RN CLOSING NOTE PT IN BED AT LOWEST AND LOCKED POSITION WITH SIDE RAILS UP X2, A/O X4, BREATHING EVEN AND UNLABORED, NO CURRENT COMPLAINTS OF ANY PAIN OR DISTRESS, IV IS PATENT AND INTACT, MRCP DONE TODAY, SAFETY PRECAUTIONS IN PLACE, CALL LIGHT WITHIN REACH, ALL NEEDS ATTENDED TO, WILL ENDORSE TO PLY CUTTER RN FOR NELLIE.
--- NOTE | 2018-06-16 19:25 | NUR ---
MS/RN NOTES RECEIVED PT. SITTING UP IN BED. PT. IS AWAKE, ALERT AND ORIENTED X4. BREATHING EVEN AND UNLABORED ON ROOM AIR. NO SOB, RESPIRATORY DISTRESS OR COMPLAINTS OF PAIN NOTED AT THIS TIME. PT. WITH RIGHT HAND 20 GAUGE PERIPHERAL IV PRESENT, PATENT AND INTACT ADMINISTERING TO PT. D5W @ 125 ML/HR. NO COMPLAINTS OF NAUSEA OR VOMITING NOTED AT THIS TIME. PT. STATES SHE IS TOLERATING CLEAR LIQUID DIET WELL, WILL ADVANCE DIET TOLERATED. BED LOCKED AND IN LOWEST POSITION, SIDE RAILS UP X2, CALL LIGHT WITHIN REACH, WILL CONTINUE TO MONITOR.
[2018-06-16 21:32] VITALS: BP 115/69
[2018-06-17] MEDS: PIPERACILLIN /TAZOBACTAM 3.375 G in IV D5W 100 ML IV SCH ×3 (01:31→17:35)
[2018-06-17 06:26] LABS: BASOPHILS # (AUTO) 0.1 /CMM (0.0-0.2); EOSINOPHILS % (AUTO) 2.7 % (0.0-6.0); HEMATOCRIT 39 % (33-45); HEMOGLOBIN 13.8 g/dL (11.5-14.8); LYMPHOCYTES # (AUTO) 1.9 /CMM (0.8-4.8); LYMPHOCYTES % (AUTO) 29.7 % (20.0-44.0); MEAN CORPUSCULAR HGB CONC 35 g/dl (31.0-36.0); MEAN CORPUSCULAR VOLUME 88 fL (82-100); MONOCYTES # (AUTO) 0.4 /CMM (0.1-1.30); MONOCYTES % (AUTO) 6.4 % (2.0-12.0); NEUTROPHILS # (AUTO) 3.8 /CMM (1.8-8.9); NEUTROPHILS % (AUTO) 60.2 % (43.0-81.0); PLATELET COUNT (AUTO) 215 /CMM (150-450); RED BLOOD CELL COUNT(AUTO) 4.43 MIL/uL (4.0-5.2); WHITE BLOOD COUNT (AUTO) 6.3 K/uL (4.3-11.0)
--- NOTE | 2018-06-17 06:48 | NUR ---
MS/RN NOTES PT. IS LYING IN BED RESTING. BREATHING EVEN AND UNLABORED ON ROOM AIR. NO SOB, RESPIRATORY DISTRESS OR COMPLAINTS OF PAIN NOTED AT THIS TIME. PT. WITH RIGHT FOREARM 22 GAUGE PERIPHERAL IV PRESENT, PATENT AND INTACT ADMINISTERING TO PT. D5W @ 125 ML/HR. ALL PT. NEEDS MET. BED LOCKED AND IN LOWEST POSITION, SIDE RAILS UP X2, CALL LIGHT WITHIN REACH, WILL ENDORSE TO DAYSHIFT NURSE FOR CONTINUITY OF CARE.
[2018-06-17 07:02] LABS: ALBUMIN 3.5 g/dL (3.4-5.0); BILIRUBIN,DIRECT 0.2 mg/dL (0.0-0.2); BILIRUBIN,TOTAL 1.5 mg/dL (0.2-1.0); CALCIUM, SERUM 8.7 mg/dL (8.5-10.1); CREATININE 0.8 mg/dL (0.6-1.3); MAGNESIUM 1.9 mg/dL (1.8-2.4); PHOSPHORUS 3.9 mg/dL (2.5-4.9); POTASSIUM 3.5 mmol/L (3.5-5.1); TOTAL PROTEIN, SERUM 6.5 g/dL (6.4-8.2)
[2018-06-17 08:00] VITALS: BP 90/52
--- NOTE | 2018-06-17 08:00 | NUR ---
RN OPENING NOTES Received Patient comfortable and resting in bed. A/O x 4. Breathing even and unlabored in room air. VS stable with no acute signs and symptoms of distress. Patient stated moderate pain. Peripheral IV on RIGHT FOREARM, clean, dry and intact. No redness, swelling nor pain at site. IV flushes well. IVF D5W running at 125ml/hr. All scheduled medications administered. Bed locked and kept in low position. Call light within reach. Will continue to monitor.
[2018-06-17] MEDS: TRAMADOL HCL 50 MG TABLET PO PRN (08:52)
--- NOTE | 2018-06-17 08:52 | NUR ---
RN NOTES Administered Tramadol 50mg PO PRN at this time, per Patients request. Patient stated pain level of 8/10 at UPPER ABDOMEN. Guarding noted. Facial grimacing noted. VS stable. Will continue to monitor.
[2018-06-17] MEDS: PANTOPRAZOLE 40 MG VIAL IV SCH (08:55)
[2018-06-17] MEDS: IV D5W 1,000 ML IV PRN (08:56)
--- NOTE | 2018-06-17 09:10 | NUR ---
RN NOTES Patient seen by Dr. Merino. New orders received. Potassium level 3.5. 40meq Potassium tablet PO x 1 time only and labs. Will continue to monitor.
[2018-06-17] MEDS ORDERED: POTASSIUM CHLORIDE 20 MEQ TAB.PRT.SR PO ONE (11:30)
[2018-06-17 12:06] LABS: BASOPHILS # (AUTO) 0.1 /CMM (0.0-0.2); BASOPHILS % (AUTO) 1.1 % (0.0-2.0); EOSINOPHILS % (AUTO) 1.9 % (0.0-6.0); HEMATOCRIT 41 % (33-45); HEMOGLOBIN 14.5 g/dL (11.5-14.8); LYMPHOCYTES % (AUTO) 30.5 % (20.0-44.0); MEAN CORPUSCULAR HGB CONC 36 g/dl (31.0-36.0); MEAN CORPUSCULAR VOLUME 88 fL (82-100); MONOCYTES # (AUTO) 0.4 /CMM (0.1-1.30); MONOCYTES % (AUTO) 6.3 % (2.0-12.0); NEUTROPHILS # (AUTO) 3.9 /CMM (1.8-8.9); NEUTROPHILS % (AUTO) 60.2 % (43.0-81.0); PLATELET COUNT (AUTO) 234 /CMM (150-450); RED BLOOD CELL COUNT(AUTO) 4.67 MIL/uL (4.0-5.2); WHITE BLOOD COUNT (AUTO) 6.5 K/uL (4.3-11.0)
[2018-06-17] MEDS: HYDROCODONE/APAP 5/325MG 1 EACH TABLET PO PRN ×2 (12:23→20:44)
--- NOTE | 2018-06-17 12:23 | NUR ---
RN NOTES Administered [place] 5-325mg PO PRN at this time, per Patients request. Patient stated pain level of 5/10 on RIGHT UPPER ABDOMEN. Guarding noted. VS stable with no acute respiratory distress. Will continue to monitor.
[2018-06-17 16:00] VITALS: BP 117/76
--- NOTE | 2018-06-17 16:53 | NUR ---
RN NOTES Patient scheduled for LAPAROSCOPIC CHOLECYSTECTOMY on Tuesday06/19/18. Provided teaching and comfort measures. Patient verbalized understanding. Patient signed consent forms at this time. Checklist started. Will endorse to oncoming nurse to complete checklist. Family at bedside at this time. Encouraged Patient to give jewelry to family. Patient refused and stated that she will keep in room. Patient comfortable in bed with no signs and symptoms of distress. Denies pain. Will continue to monitor.
--- NOTE | 2018-06-17 18:48 | NUR ---
RN CLOSING NOTES Patient comfortable and resting in bed. A/O x 4. Breathing even and unlabored in room air. VS stable with no acute signs and symptoms of distress. Patient denies pain at this time. Peripheral IV on RIGHT FOREARM, clean, dry and intact. No redness, swelling nor pain at site. IV flushes well. IVF D5W running at 125ml/hr. All scheduled medications administered. Bed locked and kept in low position. Call light within reach. Will endorse plan of care to oncoming shift.
--- NOTE | 2018-06-17 19:25 | NUR ---
MS RN NOTE RECEIVED PT IN STABLE CONDITION A&O X4, ABLE TO MAKE NEEDS KNOWN. FAMILY AT BEDSIDE. NO SIGNS OF SOB OR DISTRESS, NO C/O PAIN. ALL CURRENT NEEDS ATTENDED TO. SAFETY PRECAUTIONS IN PLACE: BED LOW, LOCKED, UPPER RAILS UP, AND CALL LIGHT WITHIN REACH. WILL CONT. TO MONITOR.
[2018-06-17 20:00] VITALS: BP 102/57
--- NOTE | 2018-06-17 20:44 | NUR ---
MS RN NOTE PRN [place] 5-325MG GIVEN FOR GALLBLADDER PAIN 09/20. WILL CONT TO MONITOR.
--- NOTE | 2018-06-17 21:15 | NUR ---
MS RN NOTE PAIN REASSESSED. PT STATES PAIN IS TOLERABLE AT 2/10. WILL CONT. TO MONITOR.
[2018-06-18 00:48] LABS: APPEARANCE,URINE CLEAR (CLEAR); BILIRUBIN,URINE NEGATIVE (NEGATIVE); BLOOD, URINE NEGATIVE Ery/uL (NEGATIVE); COLOR,URINE YELLOW (YELLOW); KETONES,URINE NEGATIVE (NEGATIVE); LEUKOCYTE ESTERASE ,URINE NEGATIVE (NEGATIVE); NITRITE, URINE NEGATIVE (NEGATIVE); PROTEIN,URINE NEGATIVE (NEGATIVE); UGLUCOSE NEGATIVE (NEGATIVE)
[2018-06-18 01:02] LABS: BACTERIA,URINE None seen /HPF (None Seen); RBC,URINE 0-2 /HPF (0-2); SQUAMOUS EPITHELIAL CELL,UR Few /HPF (None Seen); WBC,URINE 0-2 /HPF (0-3)
[2018-06-18] MEDS: PIPERACILLIN /TAZOBACTAM 3.375 G in IV D5W 100 ML IV SCH ×3 (01:03→17:09)
[2018-06-18] MEDS: IV D5W 1,000 ML IV PRN ×2 (01:08→17:26)
[2018-06-18] MEDS: HYDROCODONE/APAP 5/325MG 1 EACH TABLET PO PRN ×2 (05:35→17:23)
--- NOTE | 2018-06-18 05:35 | NUR ---
MS RN NOTE PRN [place] 5-325 MG GIVEN FOR PAIN AT GALLBLADDER 09/20. WILL CONT TO MONITOR.
--- NOTE | 2018-06-18 06:33 | NUR ---
MS RN NOTE PT IN STABLE CONDITION A&O X4, ABLE TO MAKE NEEDS KNOWN.NO SIGNS OF SOB OR DISTRESS. PAIN MANAGED ADEQUATELY THROUGHOUT SHIFT. ALL CURRENT NEEDS ATTENDED TO. SAFETY PRECAUTIONS IN PLACE: BED LOW, LOCKED, UPPER RAILS UP, AND CALL LIGHT WITHIN REACH. WILL CONT. TO MONITOR AND ENDORSE TO NEXT SHIFT FOR NELLIE.
--- NOTE | 2018-06-18 06:38 | NUR ---
MS RN NOTE PT PAIN REASSESSED, PT STATES THAT PAIN IS TOLERABLE WHEN SHE REPOSITIONS. WILL ENDORSE TO NEXT SHIFT.
[2018-06-18 07:49] VITALS: BP 97/52
[2018-06-18 08:00] VITALS: BP 97/52
--- NOTE | 2018-06-18 08:00 | NUR ---
RN OPENING NOTES Received Patient comfortable and resting in bed. A/O x 4. Breathing even and unlabored in room air. VS stable with no acute signs and symptoms of distress. BP-97/52 HR-55 RR-18 Temp-98.3F O2 Sat 97% on RA. Denies pain. Peripheral IV on RIGHT FOREARM, clean, dry and intact. No redness, swelling nor pain at site. IV flushes well. IVF D5W running at 125ml/hr. All scheduled medications administered. Bed locked and kept in low position. Call light within reach. Will continue to monitor.
[2018-06-18 08:09] LABS: BASOPHILS % (AUTO) 0.7 % (0.0-2.0); EOSINOPHILS % (AUTO) 2.4 % (0.0-6.0); HEMATOCRIT 38 % (33-45); HEMOGLOBIN 13.4 g/dL (11.5-14.8); LYMPHOCYTES # (AUTO) 1.7 /CMM (0.8-4.8); LYMPHOCYTES % (AUTO) 28.7 % (20.0-44.0); MEAN CORPUSCULAR HGB CONC 35 g/dl (31.0-36.0); MEAN CORPUSCULAR VOLUME 88 fL (82-100); MONOCYTES # (AUTO) 0.4 /CMM (0.1-1.30); MONOCYTES % (AUTO) 6.4 % (2.0-12.0); NEUTROPHILS # (AUTO) 3.7 /CMM (1.8-8.9); NEUTROPHILS % (AUTO) 61.8 % (43.0-81.0); PLATELET COUNT (AUTO) 210 /CMM (150-450); RED BLOOD CELL COUNT(AUTO) 4.34 MIL/uL (4.0-5.2); WHITE BLOOD COUNT (AUTO) 5.9 K/uL (4.3-11.0)
[2018-06-18 08:31] LABS: ALBUMIN 3.4 g/dL (3.4-5.0); BILIRUBIN,DIRECT 0.1 mg/dL (0.0-0.2); CALCIUM, SERUM 8.3 mg/dL (8.5-10.1); CREATININE 0.8 mg/dL (0.6-1.3); MAGNESIUM 1.8 mg/dL (1.8-2.4); PHOSPHORUS 3.4 mg/dL (2.5-4.9); POTASSIUM 3.8 mmol/L (3.5-5.1); TOTAL PROTEIN, SERUM 6.4 g/dL (6.4-8.2)
[2018-06-18] MEDS: PANTOPRAZOLE 40 MG VIAL IV SCH (09:13)
[2018-06-18 16:00] VITALS: BP 95/59
--- NOTE | 2018-06-18 17:23 | NUR ---
RN NOTES Administered [place] 5-325mg PO PRN per Patients request at this time. Patient reported pain level of 7/10 at the RIGHT ABDOMEN. Hot pack provided per Patients request. Will continue to monitor.
--- NOTE | 2018-06-18 19:29 | NUR ---
RN CLOSING NOTES Patient comfortable in bed and watching TV. A/O x 4. Breathing even and unlabored in room air. VS stable with no acute signs and symptoms of distress. Patient reported improved pain level of 6/10. Peripheral IV on RIGHT FOREARM, clean, dry and intact. No redness, swelling nor pain at site. IV flushes well. IVF D5W running at 125ml/hr. All scheduled medications administered. Bed locked and kept in low position. Call light within reach. Will endorse plan of care to oncoming shift.
--- NOTE | 2018-06-18 19:30 | NUR ---
MS RN NOTE RECEIVED PT IN STABLE CONDITION A&O X4, ABLE TO MAKE NEEDS KNOWN. NO SIGNS OF SOB OR DISTRESS. PAIN IS BEING MANAGED ORDERED BY MD. ALL CURRENT NEEDS MET. SAFETY PRECAUTIONS IN PLACE: BED LOW, LOCKED UPPER RAILS UP, AND CALL LIGHT WITHIN REACH. WILL CONT TO MONITOR.
[2018-06-18 21:03] VITALS: BP 100/58
[2018-06-19] VITALS (10 sets, daily range): BP systolic 98–127; BP diastolic 42–70
[2018-06-19] MEDS: PIPERACILLIN /TAZOBACTAM 3.375 G in IV D5W 100 ML IV SCH ×3 (01:40→17:07)
[2018-06-19 06:31] LABS: BASOPHILS # (AUTO) 0.1 /CMM (0.0-0.2); BASOPHILS % (AUTO) 0.7 % (0.0-2.0); EOSINOPHILS % (AUTO) 2.3 % (0.0-6.0); HEMATOCRIT 40 % (33-45); HEMOGLOBIN 14.1 g/dL (11.5-14.8); LYMPHOCYTES # (AUTO) 2.2 /CMM (0.8-4.8); LYMPHOCYTES % (AUTO) 28.7 % (20.0-44.0); MEAN CORPUSCULAR HGB CONC 35 g/dl (31.0-36.0); MEAN CORPUSCULAR VOLUME 88 fL (82-100); MONOCYTES # (AUTO) 0.4 /CMM (0.1-1.30); MONOCYTES % (AUTO) 5.5 % (2.0-12.0); NEUTROPHILS # (AUTO) 4.8 /CMM (1.8-8.9); NEUTROPHILS % (AUTO) 62.8 % (43.0-81.0); PLATELET COUNT (AUTO) 224 /CMM (150-450); RED BLOOD CELL COUNT(AUTO) 4.51 MIL/uL (4.0-5.2); WHITE BLOOD COUNT (AUTO) 7.7 K/uL (4.3-11.0)
--- NOTE | 2018-06-19 06:42 | NUR ---
MS RN NOTE PT IN STABLE CONDITION A&O X4, ABLE TO MAKE NEEDS KNOWN. NO SIGNS OF SOB OR DISTRESS. PT NPO SINCE MIDNIGHT, CONSENTS SIGNED, AND PREOP CHECKLIST STARTED. ALL CURRENT NEEDS MET. SAFETY PRECAUTIONS IN PLACE: BED LOW, LOCKED UPPER RAILS UP, AND CALL LIGHT WITHIN REACH. WILL CONT TO MONITOR AND ENDORSE TO NEXT SHIFT FOR NELLIE.
[2018-06-19 07:00] LABS: ALBUMIN 3.6 g/dL (3.4-5.0); BILIRUBIN,DIRECT 0.1 mg/dL (0.0-0.2); BILIRUBIN,TOTAL 0.7 mg/dL (0.2-1.0); CALCIUM, SERUM 8.9 mg/dL (8.5-10.1); CREATININE 0.8 mg/dL (0.6-1.3); MAGNESIUM 1.8 mg/dL (1.8-2.4); PHOSPHORUS 3.3 mg/dL (2.5-4.9); POTASSIUM 3.8 mmol/L (3.5-5.1); TOTAL PROTEIN, SERUM 6.7 g/dL (6.4-8.2)
[2018-06-19] MEDS ORDERED: LIDOCAINE HCL/PF 1% 30 ML SDV ONE (07:27)
[2018-06-19] MEDS ORDERED: BUPIVACAINE MPF 0.5% W/EPI INJ 30 ML VIAL ONE (07:27)
[2018-06-19] MEDS ORDERED: ANESTHESIA TRAY IN PYXIS 1 EA TRAY MC ONE (07:27)
[2018-06-19] MEDS ORDERED: FENTANYL PF 250MCG/5ML AMPUL ONE ×2 (07:45)
[2018-06-19] MEDS ORDERED: MIDAZOLAM HCL 2 MG/2ML VIAL ONE (07:45)
[2018-06-19] MEDS ORDERED: METOCLOPRAMIDE HCL 10 MG/2 ML VIAL ONE (07:46)
[2018-06-19] MEDS ORDERED: ROCURONIUM BROMIDE 50 MG/5 ML ONE (07:46)
[2018-06-19] MEDS ORDERED: FAMOTIDINE/PF INJ 20 MG/2 ML VIAL IV ONE (07:47)
--- NOTE | 2018-06-19 07:53 | NUR ---
MS/RN OR Patient taken to operating room, medical chart with patient.
[2018-06-19] MEDS: PANTOPRAZOLE 40 MG VIAL IV SCH (08:08)
--- NOTE | 2018-06-19 08:08 | NUR ---
MS/RN Medications Unable to administer morning medications as patient in operating room at this time.
[2018-06-19] MEDS ORDERED: HYDROMORPHONE 1 MG/1 ML DISP.SYRIN IV PRN ×2 (10:00→12:00)
[2018-06-19] MEDS ORDERED: FENTANYL PF 100MCG/2ML AMPUL ONE (10:19)
--- NOTE | 2018-06-19 11:00 | NUR ---
MS/RN Back from OR Patient back from operating room, S/P lap jonathon. Lap sites X3, all covered with small band aids, no oozing noted. Vital signs within normal range for patient although blood pressure remains on the low side. IV fluids infusing at 125ml/hr, no signs of any infiltration see. Call light within reach, will continue to monitor and ensure safety.
[2018-06-19] MEDS: GABAPENTIN 300 MG CAPSULE PO SCH ×2 (12:00→20:16)
[2018-06-19] MEDS ORDERED: IBUPROFEN 400 MG TABLET PO PRN (12:00)
[2018-06-19] MEDS: IV D5W 1,000 ML IV PRN (12:35)
--- NOTE | 2018-06-19 15:21 | NUR ---
MS/RN Pain Complaining of abdominal pain, explained to patient that this is to be expected following surgery and due to blood BP am unable to administer medication at this time. Encouraged to move around as much as pain allows.
--- NOTE | 2018-06-19 17:59 | NUR ---
MS/RN Medications IVAB hung as ordered, reminded to ambulate as much as possible to help elevate gas pain.
--- NOTE | 2018-06-19 19:15 | NUR ---
MS/RN NOTES RECEIVED PT. LYING IN BED. PT. IS AWAKE, ALERT AND ORIENTED X4. BREATHING EVEN AND UNLABORED ON ROOM AIR. NO SOB, RESPIRATORY DISTRESS OR COMPLAINTS OF PAIN NOTED AT THIS TIME. PT. WITH LEFT HAND 20 GAUGE PERIPHERAL IV PRESENT, PATENT AND INTACT ADMINISTERING TO PT. D5W @ 125 ML/HR. PT. IS S/P [facility] SILVIANO TODAY WITH DR. DE, PT. WITH 3 SURGICAL INCISION DRESSINGS PRESENT, CLEAN, DRY AND INTACT. BED LOCKED AND IN LOWEST POSITION, SIDE RAILS UP X2, CALL LIGHT WITHIN REACH, WILL CONTINUE TO MONITOR.
[2018-06-19] MEDS: HYDROCODONE/APAP 5/325MG 1 EACH TABLET PO PRN (20:16)
[2018-06-20] MEDS: PIPERACILLIN /TAZOBACTAM 3.375 G in IV D5W 100 ML IV SCH ×3 (02:50→17:11)
[2018-06-20] MEDS: GABAPENTIN 300 MG CAPSULE PO SCH ×3 (05:04→21:26)
--- NOTE | 2018-06-20 06:45 | NUR ---
MS/RN NOTES PT. IS LYING IN BED RESTING. BREATHING EVEN AND UNLABORED ON ROOM AIR. NO SOB, RESPIRATORY DISTRESS OR COMPLAINTS OF PAIN NOTED AT THIS TIME. PT. WITH LEFT HAND 20 GAUGE PERIPHERAL IV PRESENT, PATENT AND INTACT ADMINISTERING TO PT. D5W @ 125 ML/HR. PT. WITH 3 SURGICAL INCISION DRESSINGS PRESENT, CLEAN, DRY AND INTACT. ALL PT. NEEDS MET. BED LOCKED AND IN LOWEST POSITION, SIDE RAILS UP X2, CALL LIGHT WITHIN REACH, WILL ENDORSE TO DAYSHIFT NURSE FOR CONTINUITY OF CARE.
[2018-06-20 07:30] LABS: BASOPHILS % (AUTO) 0.2 % (0.0-2.0); EOSINOPHILS % (AUTO) 0.2 % (0.0-6.0); HEMATOCRIT 40 % (33-45); LYMPHOCYTES # (AUTO) 2.2 /CMM (0.8-4.8); LYMPHOCYTES % (AUTO) 17.1 % (20.0-44.0); MEAN CORPUSCULAR HGB CONC 35 g/dl (31.0-36.0); MEAN CORPUSCULAR VOLUME 89 fL (82-100); MONOCYTES # (AUTO) 0.6 /CMM (0.1-1.30); MONOCYTES % (AUTO) 4.4 % (2.0-12.0); NEUTROPHILS # (AUTO) 9.8 /CMM (1.8-8.9); NEUTROPHILS % (AUTO) 78.1 % (43.0-81.0); PLATELET COUNT (AUTO) 214 /CMM (150-450); WHITE BLOOD COUNT (AUTO) 12.6 K/uL (4.3-11.0)
--- NOTE | 2018-06-20 07:40 | NUR ---
RN OPENING NOTE PT WAS RECEIVED RESTING IN BED AT LOWEST AND LOCKED POSITION WITH SIDE RAILS UP X2, A/O X4, BREATHING EVEN AND UNLABORED ON RA, NO CURRENT COMPLAINTS OF ANY DISTRESS OR PAIN NOTED AT THIS TIME, IV IS PATENT AND INTACT, SAFETY PRECAUTIONS IN PLACE, CALL LIGHT WITHIN REACH, WILL MONITOR ACCORDINGLY.
[2018-06-20] MEDS: PANTOPRAZOLE 40 MG VIAL IV SCH (08:01)
[2018-06-20 08:10] LABS: CALCIUM, SERUM 8.8 mg/dL (8.5-10.1); CREATININE 0.9 mg/dL (0.6-1.3); MAGNESIUM 1.8 mg/dL (1.8-2.4); PHOSPHORUS 3.9 mg/dL (2.5-4.9); POTASSIUM 3.8 mmol/L (3.5-5.1)
[2018-06-20 08:15] VITALS: BP 116/64
[2018-06-20] MEDS: IV D5W 1,000 ML IV PRN ×2 (09:07→17:12)
--- NOTE | 2018-06-20 14:00 | NUR ---
RN NOTE PATIENT RESTING COMFORTABLY IN BED, PAIN MEDS WERE OFFERED BUT SHE REFUSED. WILL MONITOR ACCORDINGLY
[2018-06-20] MEDS: IBUPROFEN 400 MG TABLET PO SCH ×2 (14:03→21:00)
[2018-06-20] MEDS: ACETAMINOPHEN 325 MG TABLET PO SCH ×2 (14:03→21:00)
[2018-06-20 15:37] VITALS: BP 106/62
--- NOTE | 2018-06-20 18:15 | NUR ---
RN CLOSING NOTE PT RESTING IN BED AT LOWEST AND LOCKED POSITION WITH SIDE RAILS UP X2, A/O X4, BREATHING EVEN AND UNLABORED ON RA, NO CURRENT COMPLAINTS OF ANY DISTRESS OR PAIN, IV IS PATENT AND INTACT WITH ANTIBIOTIC INFUSING AT THIS TIME, SAFETY PRECAUTIONS IN PLACE, CALL LIGHT WITHIN REACH, WILL ENDORSE TO ONCOMING WASHTUB WORKER RN FOR NELLIE..
--- NOTE | 2018-06-20 19:35 | NUR ---
MS/RN NOTES RECEIVED PT. LYING IN BED. PT. IS AWAKE, ALERT AND ORIENTED X4. BREATHING EVEN AND UNLABORED ON ROOM AIR. NO SOB, RESPIRATORY DISTRESS OR COMPLAINTS OF PAIN NOTED AT THIS TIME. PT. WITH LEFT HAND 20 GAUGE PERIPHERAL IV PRESENT, PATENT AND INTACT ADMINISTERING TO PT. D5W @ 125 ML/HR. BED LOCKED AND IN LOWEST POSITION, SIDE RAILS UP X2, CALL LIGHT WITHIN REACH, WILL CONTINUE TO MONITOR.
[2018-06-20 20:00] VITALS: BP 97/67
[2018-06-21] MEDS: PIPERACILLIN /TAZOBACTAM 3.375 G in IV D5W 100 ML IV SCH ×2 (01:54→10:13)
[2018-06-21] MEDS: GABAPENTIN 300 MG CAPSULE PO SCH ×2 (04:52→12:04)
[2018-06-21] MEDS: ACETAMINOPHEN 325 MG TABLET PO SCH ×2 (05:00→12:18)
[2018-06-21] MEDS: IBUPROFEN 400 MG TABLET PO SCH ×2 (05:00→12:17)
--- NOTE | 2018-06-21 06:32 | NUR ---
MS/RN NOTES PT. IS LYING IN BED RESTING. BREATHING EVEN AND UNLABORED ON ROOM AIR. NO SOB, RESPIRATORY DISTRESS OR COMPLAINTS OF PAIN NOTED AT THIS TIME. PT. WITH LEFT HAND 20 GAUGE PERIPHERAL IV PRESENT, PATENT AND INTACT ADMINISTERING TO PT. D5W @ 125 ML/HR. ALL PT. NEEDS MET. BED LOCKED AND IN LOWEST POSITION, SIDE RAILS UP X2, CALL LIGHT WITHIN REACH, WILL ENDORSE TO DAYSHIFT NURSE FOR CONTINUITY OF CARE.
[2018-06-21 07:02] LABS: BASOPHILS % (AUTO) 0.4 % (0.0-2.0); EOSINOPHILS % (AUTO) 0.7 % (0.0-6.0); HEMATOCRIT 37 % (33-45); HEMOGLOBIN 13.1 g/dL (11.5-14.8); LYMPHOCYTES # (AUTO) 1.8 /CMM (0.8-4.8); LYMPHOCYTES % (AUTO) 19.3 % (20.0-44.0); MEAN CORPUSCULAR HGB CONC 36 g/dl (31.0-36.0); MEAN CORPUSCULAR VOLUME 89 fL (82-100); MONOCYTES # (AUTO) 0.5 /CMM (0.1-1.30); MONOCYTES % (AUTO) 5.6 % (2.0-12.0); NEUTROPHILS # (AUTO) 6.8 /CMM (1.8-8.9); PLATELET COUNT (AUTO) 195 /CMM (150-450); RED BLOOD CELL COUNT(AUTO) 4.13 MIL/uL (4.0-5.2); WHITE BLOOD COUNT (AUTO) 9.2 K/uL (4.3-11.0)
--- NOTE | 2018-06-21 07:15 | NUR ---
MS RN INITIAL NOTES Report received at bedside. Patient received in bed, sleeping, easily aroused. Denies any pain at the moment. Not in any type of distress. Safety measures in place. Will continue to monitor and assess patient
[2018-06-21 07:18] LABS: CALCIUM, SERUM 8.3 mg/dL (8.5-10.1); CREATININE 0.8 mg/dL (0.6-1.3); POTASSIUM 3.6 mmol/L (3.5-5.1)
[2018-06-21 08:00] VITALS: BP 97/57
[2018-06-21] MEDS: PANTOPRAZOLE 40 MG VIAL IV SCH (09:43)
--- NOTE | 2018-06-21 12:05 | NUR ---
MS PHARMACEUTICAL PROCESS ENGINEER NOTES Patient education given to patient. Discharge papers provided to, explained to and signed by patient. Patient verbalized understanding. Questions and concerns addressed. Belongings form signed and placed in chart. Patient verbalized tragic event that happened regarding IUFD. Patient denied SI or HI plans. IV access removed. Cath tip intact with no bleeding noted. Patient denies any pain at the moment. Pt verbalized that neurontin seems to help with pain a lot better than motrin or tylenol. Patient currently eating lunch and waiting for picking crew supervisor by private car by aunt. Will continue to monitor and assess patient.
--- NOTE | 2018-06-21 14:28 | NUR ---
MS TOLL REPAIRER CENTRAL OFFICE NOTES Patient's aunt arrived to olive picker patient. ID bands removed. Patient wheeled down to lobby via wheelchair in stable condition. Belongings with patient's aunt. Reminded patient to make a followup appointment with primary care physician and to continue medications as ordered. All questions and concerns addressed.
== END 2018-06-21 14:22 | disposition home or self-care (01) | DRG 263 ==
LOC: ER 09:47 → MED 15:42
PROVIDERS: ADMIT Student in an Organized Health Care Education/Training Program; ATTEND Hospitalist
PROC: 0FT44ZZ Resection of Gallbladder, Percutaneous Endoscopic Approach (ICD-10-PCS; principal; 2018-06-19)
DX: K80.12 Calculus of gallbladder with acute and chronic cholecystitis without obstruction (principal); K85.10 Biliary acute pancreatitis without necrosis or infection; K76.0 Fatty (change of) liver, not elsewhere classified; K80.46 Calculus of bile duct with acute and chronic cholecystitis without obstruction; E66.9 Obesity, unspecified; E78.5 Hyperlipidemia, unspecified; Z68.32 Body mass index [BMI] 32.0-32.9, adult; R00.1 Bradycardia, unspecified
CPT/HCPCS: 36415; 71045-TC; 74181-TC; 76705-TC; 80048-TC; 80053-TC; 80061-TC; 80076-TC; 81000-TC; 83690-TC; 83735-TC; 84100-TC; 84703-TC; 85025-TC; 85610-TC; 85730-TC; 86850-TC; 87081-TC; 87086-TC; 88304-TC; A4216; A6209; A6402; C9113; G0378; J0690; J1170; J2250; J2270; J2405; J2543; J2704; J2710; J2765; J3010; J3490; J7030; J7042; J7060; J7070